=== PATIENT | male | born 1960 | race Caucasian/White ===

== ENCOUNTER 2020-07-09 12:45 | Emergency (ER) | payer OTHER ==
[2020-07-09] MEDS ORDERED: Ondansetron 4 MG/2 ML SDV IVPUSH ONE (13:06)
[2020-07-09] MEDS: HYDROmorphone 2 MG/ML SDV IVPUSH ONE ×2 (13:06→14:47)
--- NOTE | 2020-07-09 13:32 | EDM.PDOC ---
ED HPI GENERAL MEDICAL PROBLEM - General Chief Complaint: Abdominal Pain Stated Complaint: ABD PAIN Time Seen by Provider: 07/09/20 13:15 Source of Information: Reports: Patient History Limitations: Reports: No Limitations - History of Present Illness INITIAL COMMENTS - FREE TEXT/NARRATIVE: Known umbilical hernia. Periumbilical Abdominal pain since this AM. + nausea. Denies any urinary symptoms, diarrhea, CP, SOB, CVA tenderness, radiation of pain. Last BM 2 hours ago without normal blood. Pain 9-06/25. Onset: Today Duration: Getting Worse Location: Reports: Abdomen Quality: Reports: Pressure Severity: Moderate Improves with: Reports: None Worsens with: Reports: None Associated Symptoms: Reports: Nausea/Vomiting. Denies: Confusion, Chest Pain, Cough, Fever/Chills, Shortness of Breath Abdominal Pain Score (Numeric/FACES): 10 - Related Data Allergies Allergy/AdvReac Type Severity Reaction Status Date / Time No Known Allergies Allergy Verified 07/09/20 13:20 Home Meds: Home Meds Aspirin 1 tab PO DAILY 07/09/20 [History] ED ROS GENERAL - Review of Systems Review Of Systems: See Below Constitutional: Reports: No Symptoms HEENT: Reports: No Symptoms Respiratory: Reports: No Symptoms Cardiovascular: Reports: No Symptoms Endocrine: Reports: No Symptoms GI/Abdominal: Reports: Abdominal Pain, Nausea : Reports: No Symptoms Musculoskeletal: Reports: No Symptoms Skin: Reports: Other (umbilicus is protruding, 4-5cm hard bruising mass noted) Neurological: Reports: No Symptoms Psychiatric: Reports: No Symptoms ED EXAM, GI/ABD - Physical Exam Exam: See Below Exam Limited By: No Limitations General Appearance: Alert, WD/WN, Moderate Distress Head: Atraumatic Neck: Normal Inspection, Non-Tender, Full Range of Motion Respiratory/Chest: No Respiratory Distress, Lungs Clear, Normal Breath Sounds, No Accessory Muscle Use Cardiovascular: Normal Peripheral Pulses, Regular Rate, Rhythm, No Edema, No JVD, No Murmur GI/Abdominal Exam: Normal Bowel Sounds, Tender, Hernia, Mass Back Exam: Normal Inspection, Full Range of Motion. No: CVA Tenderness (R), CVA Tenderness (L) Extremities: Normal Inspection, Normal Range of Motion, Non-Tender, No Pedal Edema, Normal Capillary Refill Neurological: Alert, Oriented, Normal Cognition, Normal Gait, No Motor/Sensory Deficits Psychiatric: Normal Affect, Normal Mood Skin Exam: Warm, Dry, Intact Lymphatic: No Adenopathy Course - Vital Signs Last Recorded V/S: Last Vital Signs Temp 96.1 F L 07/09/20 12:50 Pulse 82 07/09/20 15:29 Resp 16 07/09/20 15:29 BP 169/73 H 07/09/20 14:44 Pulse Ox 100 07/09/20 15:29 - Orders/Labs/Meds Labs: Laboratory Tests 07/09/20 07/09/20 07/09/20 Range/Units 13:06 13:06 13:25 WBC 13.3 H (4.0-11.0) K/uL RBC 4.84 (4.50-6.50) M/uL Hgb 14.8 (13.0-18.0) g/dL Hct 44.0 (40.0-54.0) % MCV 91 (76-96) fL MCH 30.6 (27.0-32.0) pg MCHC 33.6 (31.0-35.0) g/dL RDW 14.0 (11.0-16.0) % Plt Count 310 (150-400) K/uL MPV 9.6 (6.0-10.0) fL Neut % (Auto) 79.9 H (45.0-70.0) % Lymph % (Auto) 14.7 L (20.0-40.0) % [place] % (Auto) 5.1 (3.0-10.0) % Eos % (Auto) 0.1 L (1.0-5.0) % Baso % (Auto) 0.2 (0.0-0.5) % Neut # (Auto) 10.66 H (2.00-7.50) K/uL Lymph # (Auto) 1.96 (1.50-4.00) K/uL [place] # (Auto) 0.68 (0.20-0.80) K/uL Eos # (Auto) 0.01 L (0.04-0.40) K/uL Baso # (Auto) 0.03 (0.02-0.10) K/uL Sodium 139 (136-145) mmol/L Potassium 4.1 (3.5-5.1) mmol/L Chloride 102 (98-107) mmol/L Carbon Dioxide 25.6 (21.0-32.0) mmol/L Anion Gap 15.5 H (5.0-15.0) mmol/L BUN 20 (8-26) mg/dL Creatinine 1.18 (0.70-1.30) mg/dL Est Cr Clr Drug Dosing 68.74 mL/min Estimated GFR (MDRD) > 60 (>60) MLS/MIN BUN/Creatinine Ratio 16.9 (6-25) Glucose 172 H (74-100) mg/dL Calcium 9.2 (8.5-10.1) mg/dL Total Bilirubin 0.7 (0.0-1.0) mg/dL AST 29 (15-37) U/L ALT 37 (12-78) U/L Alkaline Phosphatase 60 (46-116) U/L Total Protein 7.3 (6.4-8.2) g/dL Albumin 4.2 (3.4-5.0) g/dL Globulin 3.1 (2.2-4.2) g/dL Albumin/Globulin Ratio 1.4 (0.8-2.0) SARS CoV-2 RNA Rapid DARINEL Negative Meds: Medications Discontinued Medications Generic Name Dose Route Start Last Admin Trade Name Freq PRN Reason Stop Dose Admin Hydromorphone HCl 1 mg 07/09/20 13:08 07/09/20 14:47 Dilaudid IVPUSH 07/09/20 13:09 1 mg ONETIME ONE Administration Ondansetron HCl 8 mg 07/09/20 13:06 07/09/20 13:04 Zofran IVPUSH 07/09/20 13:07 8 mg ONETIME ONE Administration Departure - Departure Time of Disposition: 16:24 Disposition: DC/Tfer to Acute Hospital 02 Condition: Good Clinical Impression: Incarcerated umbilical hernia - Discharge Information *PRESCRIPTION DRUG MONITORING PROGRAM REVIEWED*: Not Applicable *COPY OF PRESCRIPTION DRUG MONITORING REPORT IN PATIENT INDIGO: Not Applicable Instructions: Umbilical Hernia, Adult, Hernia, Adult Referrals: PCP,None [Primary Care Provider] - Forms: ED Department Discharge - Problem List Review Problem List Initiated/Reviewed/Updated: Yes - Assessment/Plan Plan: Patient will be transferred to [place] via helicopter for surgery. Anayeli [phone] notified and aware of pending transfer. [id number] Patient accepted at [facility] by Dr. Underwood (surgery), and Dr. Lowery (ED). Patient will be transported (ETA 40 minutes) directly to ED.
--- NOTE | 2020-07-11 09:01 | CT ---
DATE OF SERVICE: 07/09/20 CLINICAL DATA: abdominal pain, known umbilical hernia. ENHANCED ABDOMEN AND PELVIC CT: Multislice acquisition through the abdomen and pelvis with IV, but without oral contrast was performed. No priors. The lung bases are clear. The heart size is normal. There is mild diffuse fatty infiltration of the liver. No focal hepatic lesions. The gallbladder appears normal. No biliary ductal dilatation. There are small calcifications within the spleen consistent with prior granulomatous disease. The spleen otherwise appears normal. The pancreas appears normal. The right and left adrenals appear normal. The right and left kidneys appear normal and enhance symmetrically. No hydronephrosis or hydroureter. The bladder is fluid-filled. It appears normal. The prostate is mildly enlarged. No evidence of appendicitis. There is an umbilical hernia that contains a dilated loop of small bowel. The afferent loops of small bowel are dilated and contain air-fluid levels. The efferent loops of small bowel are normal caliber. There is also fluid and fat stranding within the hernia sac. The findings are consistent with a small bowel obstruction produced by the hernia. No free air. No free fluid. No adenopathy. No aortic aneurysm or dissection. IMPRESSION: UMBILICAL HERNIA CONTAINING SMALL BOWEL WITH SMALL BOWEL OBSTRUCTION. The patient's physician was notified of the findings by telephone and by [facility] preliminary radiology report. [id number] [facility]
== END 2020-07-09 15:52 ==
LOC: LB.ED 12:45
DX: K42.0 Umbilical hernia with obstruction, without gangrene (principal); R11.2 Nausea with vomiting, unspecified; Z79.82 Long term (current) use of aspirin; Z20.828 Contact with and (suspected) exposure to other viral communicable diseases
CPT/HCPCS: 36415; 74177; 80053; 85025; 96374; 96375; 96376; 99285-25; J1170; J2405; U0002